=== PATIENT | male | born 1955 | race Caucasian/White ===

== ENCOUNTER → 2024-08-23 06:37 | Outpatient (REF) | payer OTHER, SELFPAY | LOC: RCS 06:37 | PROVIDERS: ATTENDING PHYSICIAN Internal Medicine Cardiovascular Disease; FAMILY PHYSICIAN Family Medicine | DX: R07.89 Other chest pain (principal); R06.00 Dyspnea, unspecified | CPT/HCPCS: 78452; 93017; A9500 ==